=== PATIENT | female | born 1995 | race Caucasian/White ===

== ENCOUNTER 2018-05-12 07:39 | Emergency (ER) | payer BC ==
[2018-05-12] MEDS ORDERED: LORazepam INJ* 2 MG/ML 1 ML VIAL IV PUSH ONE (08:07)
[2018-05-12] MEDS ORDERED: Ketorolac INJ* 30 MG/ML 1 ML VIAL IV PUSH ONE (08:23)
[2018-05-12 08:26] LABS: ABS Basophils 0 10^3/ul (0-0.2); ABS Eosinophils 0.1 10^3/ul (0-0.6); ABS Lymphocytes 2.3 10^3/ul (1.0-4.8); ABS Monocytes 0.5 10^3/ul (0-0.8); ABS Neutrophils 2.6 10^3/ul (1.5-7.7); ABS Nucleated RBC 0 10^3/ul; Eosinophil % 1.2 %; Hematocrit 40 % (35-47); Hemoglobin 13.4 g/dl (12.0-16.0); Lymphocyte % 42.1 %; Mean Corpuscular HGB Conc 34 g/dl (31-36); Mean Corpuscular Hemoglobin 32 pg (27-31); Mean Corpuscular Volume 94 fL (80-97); Mean Platelet Volume 7.4 fL (7.4-10.4); Nucleated Red Blood Cells % 0.1; Platelet Count 200 10^3/ul (150-450); Red Blood Count 4.21 10^6/ul (4.00-5.40); Red Cell Distribution Width 13 % (10.5-15); White Blood Count 5.5 10^3/ul (3.5-10.8)
[2018-05-12 08:39] LABS: ALT 8 U/L (7-52); AST 14 U/L (13-39); Albumin 3.9 g/dL (3.2-5.2); Albumin/Globulin Ratio 1.6 (1-3); Alkaline Phosphatase 39 U/L (34-104); Amylase 46 U/L (29-103); Anion Gap 5 mmol/L (2-11); BUN/Creatinine Ratio 16.9 (8-20); Blood Urea Nitrogen 11 mg/dL (6-24); C Reactive Protein < 1.00 mg/L (<8.01); CO2 Carbon Dioxide 27 mmol/L (22-32); Chloride 106 mmol/L (101-111); Globulin 2.4 g/dL (2-4); Glucose 92 mg/dL (70-100); Magnesium 1.9 mg/dL (1.9-2.7); Sodium 138 mmol/L (135-145); Total Protein 6.3 g/dL (6.4-8.9)
--- NOTE | 2018-05-12 08:39 | ED ---
Abdominal Pain/Female - HPI Summary HPI Summary: Patient is a 22-year-old female with a history of a cholecystectomy 3 years ago presenting to the ED with abdominal pain. She notes the abdominal pain is intermittent, severe during an "attack" beginning at the epigastric region and wrapping around bandlike to the back, with worsening pain to the right upper quadrant. This is intermittent, stabbing and burning in nature 10/10 in severity during an attack and 2/10 at rest. She states in the past Haldol and Ativan have helped her. 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 She is not had a follow-up US since her cholecystectomy. She was given hyoscyamine by Dr. Wilkinson, and usually takes this during an attack. - History of Current Complaint Chief Complaint: EDAbdPain Stated Complaint: ABD PAIN Time Seen by Provider: 05/12/18 07:54 Hx Obtained From: Patient Hx Last Menstrual Period: 08/15-11/09/14 ?: No Onset/Duration: Sudden Onset Timing: Constant Severity Initially: Moderate Severity Currently: Moderate Pain Intensity: 3 Pain Scale Used: 0-10 Numeric Location: Discrete At: RUQ, Other - bilateral sides radiating to the back Radiates: Yes Radiates to: Back Character: Sharp, Other: - band like Aggravating Factor(s): Nothing Alleviating Factor(s): Nothing Associated Signs and Symptoms: Positive: Negative. Negative: Diaphoresis, Chest Pain, Back Pain, Constipation, Urinary Symptoms, Decreased Appetite, Vaginal Bleeding, Vaginal Discharge, Vomiting, Diarrhea - Risk Factors Ectopic Risk Factor: Negative Ovarian Torsion Risk Factor: Reproductive Age Allergies/Adverse Reactions: Allergies Allergy/AdvReac Type Severity Reaction Status Date / Time oxycodone Allergy Vomiting Verified 05/12/18 07:57 flu shot Allergy Severe Swelling Uncoded 05/04/15 10:49 Of Face,Lips,& Throat Home Medications: Home Medications Fludrocortisone Acetate TAB* [Florinef TAB*] 0.1 mg PO DAILY 05/12/18 [History Confirmed 05/12/18] Fluvoxamine (NF) [Luvox (NF)] 100 mg PO DAILY 05/12/18 [History Confirmed ] Hyoscyamine Sulfate [Levsin] 0.125 mg PO QID PRN MDD 4 tabs 05/12/18 [History Confirmed 05/12/18] PMH/Surg Hx/FS Hx/Imm Hx Previously Healthy: Yes Endocrine/Hematology History: Denies: Hx Diabetes, Hx Thyroid Disease Cardiovascular History: Denies: Hx Hypertension Respiratory History: Reports: Hx Asthma Denies: Hx Chronic Obstructive Pulmonary Disease (COPD) GI History: Denies: Hx Ulcer - Surgical History Surgery Procedure, Year, and Place: wisdom teeth, 2010, - Immunization History Hx Pertussis Vaccination: No Immunizations Up to Date: Yes Infectious Disease History: No Infectious Disease History: Denies: Hx Clostridium Difficile, Hx Hepatitis, Hx Human Immunodeficiency Virus (HIV), Hx of Known/Suspected MRSA, Hx Shingles, Hx Tuberculosis, Hx Known/ Suspected VRE, Hx Known/Suspected VRSA, History Other Infectious Disease, Traveled Outside the [place] in Last 30 Days - Social History Occupation: Unemployed, Student Lives: Dormitory/Roommates Hx Substance Use: No Substance Use Type: Reports: None Smoking Status (MU): Never Smoked Tobacco Review of Systems Constitutional: Negative Negative: Fever, Chills, Fatigue, Skin Diaphoresis Negative: Photophobia, Blurred Vision, Diplopia Negative: Dental Pain, Sore Throat Negative: Palpitations, Chest Pain Negative: Shortness Of Breath, Other Positive: Abdominal Pain, Vomiting, Nausea. Negative: Diarrhea Genitourinary: Negative Positive: no symptoms reported, see HPI Positive: Arthralgia - mid back pain, Myalgia Negative: Rash, Bruising Neurological: Negative All Other Systems Reviewed And Are Negative: Yes Physical Exam Triage Information Reviewed: Yes Vital Signs On Initial Exam: Initial Vitals Temp Pulse Resp BP Pulse Ox 97.6 F 98 18 92/67 100 05/12/18 07:41 05/12/18 07:41 05/12/18 07:41 05/12/18 07:41 05/12/18 07:41 Vital Signs Reviewed: Yes Appearance: Positive: Well-Appearing, Well-Nourished Skin: Positive: Warm, Skin Color Reflects Adequate Perfusion Head/Face: Positive: Normal Head/Face Inspection Eyes: Positive: EOMI, JAILENE, Conjunctiva Clear Neck: Positive: Supple, No Lymphadenopathy Respiratory/Lung Sounds: Positive: Clear to Auscultation, Breath Sounds Present Cardiovascular: Positive: RRR, Pulses are Symmetrical in both Upper and Lower Extremities Musculoskeletal: Positive: Normal, Strength/ROM Intact Neurological: Positive: Speech Normal Psychiatric: Positive: Normal, Affect/Mood Appropriate AVPU Assessment: Alert Diagnostics - Vital Signs Vital Signs Temp Pulse Resp BP Pulse Ox 05/12/18 08:21 18 05/12/18 08:08 84 89/55 96 05/12/18 08:07 83 97 05/12/18 07:41 97.6 F 98 18 92/67 100 - Laboratory Result Diagrams: 05/12/18 08:10 05/12/18 08:10 Lab Statement: Any lab studies that have been ordered have been reviewed, and results considered in the medical decision making process. Abdominal Pain Fem Course/Dx - Course Course Of Treatment: Patient is evaluated for bandlike abdominal pain radiating from the bilateral upper quadrants to the mid back. She states she has had several of these attacks of the past few years. She is subsequently had a cholecystectomy due to cholelithiasis assuming this was the cause of her attacks. However after the cholecystectomy, the pain continues. Mother states she also felt it could be anxiety related, however patient is on break right now and denies any anxiety. On arrival, patient appears to be in acute distress , rates her pain an 8/10 stabbing and tight. She endorses one episode of nausea vomiting with this which is normal for her. She continues to see doctor Jaja who stated this could be a sphincter of Oddi dysfunction. Currently do not have ultrasound workforce consultant today as this is a holiday. However, labs obtained and are all WNL including LFTs. I do not believe it is an emergent situation to call in ultrasound at this time. Previously given Toradol and Zofran without relief of pain, subsequently given hydrocodone 5 with good relief. I discussed with the patient the patient's mother regarding treatment plan. She understands she will be discharged with hydrocodone and has Zofran at home. She is to return if she has any differing or changing symptoms. She'll follow- up with doctor Jaja. - Diagnoses Provider Diagnoses: Abdominal pain Discharge - Sign-Out/Discharge Documenting (check all that apply): Patient Departure - Discharge Plan Condition: Stable Disposition: HOME Prescriptions: HYDROcodone/ACETAMIN 5-325 MG* [Dale 5-325 TAB*] 1 tab PO Q4H PRN #12 tab MDD 6 PRN Reason: Pain Patient Education Materials: Acute Abdominal Pain (ED) Referrals: Leah Fajardo, [facility] [Primary Care Provider] - Additional Instructions: Heat to the back Hydrocodone as needed for pain up to every 4 hours Take the zofran prior to the hydrocodone Always eat something small while taking the pain medication DO NOT TAKE TYLENOL WITH THIS MEDICATION Please follow up with Dr. Wilkinson Call tomorrow for an appt However, if you develop any worsening or changing symptoms, return to the ED immediately - Billing Disposition and Condition Condition: STABLE Disposition: Home
[2018-05-12 08:44] LABS: HCG Pregnancy < 0.60 mIU/mL
[2018-05-12] MEDS ORDERED: HYDROcodone/ACETAMIN 5-325 MG* 1 TAB PO ONE (09:00)
[2018-05-12] MEDS ORDERED: NS 0.9% 1000 ML* 1,000 ML IV ONE (09:00)
[2018-05-12 11:28] VITALS: BP 86/55
== END 2018-05-12 11:27 | disposition home or self-care (01) ==
LOC: ED 07:39
DX: R10.11 Right upper quadrant pain (principal); R11.2 Nausea with vomiting, unspecified; M54.9 Dorsalgia, unspecified
CPT/HCPCS: 36415; 80053; 82150; 83605; 83690; 83735; 84702; 85025; 86140; 96361; 96374; 96375; 99283; J1885; J2060

== ENCOUNTER 2023-03-03 08:06 | Inpatient (IN) ==
[2023-03-03] MEDS ORDERED: Dinoprostone 10 MG VAG.SUPP VAGINAL ONE (08:59)
[2023-03-03] MEDS ORDERED: Lactated Ringers 1000 ml BAG 1,000 ML IV ONE (08:59)
[2023-03-03] MEDS ORDERED: Buffered Lidocaine 1% SYRIN 1 ml INTRADERM ONE (08:59)
[2023-03-03] MEDS ORDERED: Lidocaine 1% VIAL 10 MG/ML 30 ML VIAL INJ PRN (08:59)
[2023-03-03] MEDS ORDERED: Promethazine INJ(RESTRICTED) 25 MG/ML 1 ml VIAL IV PRN (08:59)
[2023-03-03] MEDS ORDERED: Lactated Ringers 1000 ml BAG 1,000 ML IV SCH (09:00)
[2023-03-03 11:02] LABS: ABS Lymphocytes 2.2 10^3/uL (1.0-4.8); ABS Monocytes 0.5 10^3/uL (0.0-0.9); ABS Neutrophils 4.5 10^3/uL (1.5-7.6); Eosinophil % 0.4 %; Hematocrit 35.2 % (35-45); Hemoglobin 12.1 g/dL (11.5-14.3); Mean Corpuscular Hemoglobin 31.8 pg (27-33); Mean Corpuscular Hgb Conc 34.4 g/dL (31-36); Mean Corpuscular Volume 92.6 fL (80-97); Platelet Count 174 10^3/uL (150-450); Red Cell Distribution Width 13.4 % (12-17); White Blood Count 7.3 10^3/uL (3.8-11.8)
[2023-03-03 11:05] LABS: Urine Benzodiazepine Screen None Detected (None Detect); Urine Opiates Screen None Detected (None Detect)
[2023-03-03] MEDS ORDERED: Ondansetron 4 mg VIAL 2 MG/ML 2 ml VIAL IV PRN (22:41)
[2023-03-04] MEDS ORDERED: Morphine 10 MG/ML VIAL (1 ml) IV ONE (03:47)
[2023-03-04] MEDS ORDERED: OBEPIDURAL (200 ML) 200 ML EPIDURAL ONE (04:45)
[2023-03-04] MEDS ORDERED: Lidocaine 1.5% EPI 1:200,000 30 ML SDV ONE (04:46)
[2023-03-04] MEDS ORDERED: Lactated Ringers 1000 ml BAG 1,000 ML IV ONE ×2 (05:43→18:42)
[2023-03-04] MEDS ORDERED: Phenylephrine 40 mcg/mL 10mL (400mcg) SYRINGE IV PUSH PRN (05:43)
[2023-03-04] MEDS ORDERED: Lactated Ringers 1000 ml BAG 500 ML IV PRN (05:43)
[2023-03-04] MEDS ORDERED: Sodium Citrate/Citric Acid LIQ 15 ML UDC PO PRN (05:43)
[2023-03-04] MEDS ORDERED: Lactated Ringers 1000 ml BAG 1,000 ML IV SCH (06:00)
[2023-03-04] MEDS ORDERED: OBEPIDURAL (200 ML) 200 ML EPIDURAL SCH (06:00)
[2023-03-04 06:32] LABS: Urine Appearance Cloudy; Urine Bilirubin Negative (Negative); Urine Blood Negative (Negative); Urine Color Yellow; Urine Glucose Negative (Negative); Urine Ketones 2+ (Negative); Urine Nitrite Negative (Negative); Urine Protein 1+(30 mg/dL) (Negative); Urine Specific Gravity 1.016 (1.002-1.030); Urine Urobilinogen Negative (Negative)
[2023-03-04 06:47] LABS: Urine Bacteria Absent (Absent); Urine Red Blood Cell Trace(0-2/hpf) (Absent); Urine Squamous Epithelial Cell Present (Absent); Urine White Blood Cell Trace(0-5/hpf) (Absent)
[2023-03-04] MEDS ORDERED: Oxytocin in LR 20,000 MILLI.UNIT/1,000 ML BAG IV ONE (13:18)
[2023-03-04] MEDS ORDERED: Glycerin ADULT 2.4 gm SUPP PR PRN (15:56)
[2023-03-04] MEDS ORDERED: Dibucaine 1% OINT 28.35 GM TUBE PR PRN (15:56)
[2023-03-04] MEDS ORDERED: Witch Hazel PAD JAR TOPICAL PRN (15:56)
[2023-03-04] MEDS ORDERED: Oxytocin in LR 20,000 MILLI.UNIT/1,000 ML BAG IV SCH (16:00)
[2023-03-04 21:00] LABS: Albumin 2.6 g/dL (3.2-5.2); Calcium 8.1 mg/dL (8.6-10.3); Potassium 3.8 mmol/L (3.5-5.0); Total Bilirubin 0.4 mg/dL (0.2-1.0)
[2023-03-04 21:06] LABS: Albumin/Globulin Ratio 1.3 (1-3); Creatinine, Serum 0.92 mg/dL (0.51-0.95); Total Protein 4.6 g/dL (6.4-8.9)
[2023-03-05 07:17] LABS: ABS Lymphocytes 2.3 10^3/uL (1.0-4.8); ABS Monocytes 0.6 10^3/uL (0.0-0.9); ABS Neutrophils 9.7 10^3/uL (1.5-7.6); Eosinophil % 0.4 %; Hematocrit 25.9 % (35-45); Lymphocyte % 17.9 %; Mean Corpuscular Hemoglobin 32.2 pg (27-33); Mean Corpuscular Hgb Conc 34.8 g/dL (31-36); Mean Corpuscular Volume 92.7 fL (80-97); Mean Platelet Volume 8.7 fL (7.5-11.2); Platelet Count 139 10^3/uL (150-450); Red Blood Count 2.79 10^6/uL (3.63-4.92); Red Cell Distribution Width 13.3 % (12-17); White Blood Count 12.6 10^3/uL (3.8-11.8)
[2023-03-06 08:55] VITALS: BP 111/69
== END 2023-03-06 13:00 | disposition home or self-care (01) | DRG 560 ==
LOC: MCHOBOUT 08:06 → MCHOB 08:58
PROVIDERS: ADMIT Registered Nurse; ATTEND Registered Nurse

== ENCOUNTER 2023-08-15 04:52 | Observation (INO) ==
[2023-08-15] MEDS: Ondansetron 4 mg VIAL 2 MG/ML 2 ml VIAL IV ONE ×3 (05:07→06:35)
[2023-08-15 05:28] LABS: ABS Lymphocytes 0.5 10^3/uL (1.0-4.8); ABS Monocytes 0.2 10^3/uL (0.0-0.9); Eosinophil % 0.7 %; Lymphocyte % 9.2 %; Mean Corpuscular Hemoglobin 31.5 pg (27-33); Mean Platelet Volume 6.8 fL (7.5-11.2); Platelet Count 240 10^3/uL (150-450); Red Blood Count 4.11 10^6/uL (3.63-4.92); Red Cell Distribution Width 13.3 % (12-17); White Blood Count 5.8 10^3/uL (3.8-11.8)
[2023-08-15 06:01] LABS: ALT 46 U/L (7-52); AST 14 U/L (13-39); Albumin/Globulin Ratio 1.5 (1-3); Alkaline Phosphatase 68 U/L (35-149); Anion Gap 14 mmol/L (2-16); Blood Urea Nitrogen 13 mg/dL (6-24); C Reactive Protein 49.07 mg/L (<8.01); CO2 Carbon Dioxide 25 mmol/L (22-32); Calcium 8.4 mg/dL (8.6-10.3); Chloride 106 mmol/L (101-111); Creatinine, Serum 0.73 mg/dL (0.51-0.95); Globulin 2.6 g/dL (2-4); Glucose 90 mg/dL (70-100); Lipase 13 U/L (11.0-82.0); Potassium 3.7 mmol/L (3.5-5.0); Sodium 145 mmol/L (135-145); Total Bilirubin 0.5 mg/dL (0.2-1.0); Total Protein 6.6 g/dL (6.4-8.9); eGFR CKD-EPI 114.1 (>60)
[2023-08-15 06:07] LABS: HCG Pregnancy < 0.60 mIU/mL
[2023-08-15] MEDS: Lactated Ringers 1000 ml BAG 1,000 ML IV SCH ×2 (07:00→11:40)
[2023-08-15 07:06] LABS: Activated Partial Thrombo Time 33.3 seconds (26.0-38.0); INR 1.08 (0.83-1.13)
[2023-08-15] MEDS: Iohexol 300 (CONTRAST) 10 ML SDV IV ONE (07:18)
[2023-08-15 07:47] LABS: Magnesium 1.7 mg/dL (1.9-2.7)
[2023-08-15 07:54] LABS: HCG Pregnancy < 0.60 mIU/mL
[2023-08-15] MEDS: Magnesium Sulfate 2 gm BAG 2 GM/50 ML BAG IVPB ONE (08:12)
[2023-08-15] MEDS ORDERED: Ondansetron 4 mg VIAL 2 MG/ML 2 ml VIAL IV PRN (08:53)
[2023-08-15] MEDS: Famotidine IV 10 MG/ML 2 ml VIAL (20 mg) IV SLOW PU SCH (10:35)
[2023-08-15] MEDS: Prochlorperazine 5 mg/ml 2 ml VIAL (10 mg) IV PRN (11:36)
[2023-08-15] MEDS: HYDROmorphone 1 MG/1 ML SYRINGE IV SLOW PU PRN (11:36)
[2023-08-15 13:21] VITALS: BP 101/58
== END 2023-08-15 17:15 | disposition home or self-care (01) ==
LOC: EDHOLD 04:52 → ED 04:52 → SSU 09:45
PROVIDERS: ADMIT Surgery; ATTEND Surgery